=== PATIENT | male | born 1945 | race Caucasian/White ===

== ENCOUNTER 2016-07-22 12:20 | Outpatient (CLI) | payer BC, MEDICARE | END 2016-07-22 12:21 | disposition home or self-care (01) | LOC: NAVSJIPCSP 12:20 | PROVIDERS: ATTEND Family Medicine | DX: C44.601 Unspecified malignant neoplasm of skin of unspecified upper limb, including shoulder (principal) ==

== ENCOUNTER 2020-12-16 13:57 | Outpatient (CLI) | payer MEDICARE, OTHER | END 2020-12-16 13:58 | disposition home or self-care (01) | LOC: NAV RAD 13:57 | PROVIDERS: ATTEND Family Medicine | DX: R10.9 Unspecified abdominal pain (principal); R11.0 Nausea; K63.89 Other specified diseases of intestine | CPT/HCPCS: 74018 ==

== ENCOUNTER 2020-12-16 15:57 | Outpatient (CLI) | payer MEDICARE, OTHER ==
[~2020-12-16 15:57] MED LIST: Iopamidol 370 76% 100 ML VIAL ONE
== END 2020-12-16 15:58 | disposition home or self-care (01) ==
LOC: NAV CT 15:57
PROVIDERS: ATTEND Family Medicine
DX: R10.9 Unspecified abdominal pain (principal); I70.0 Atherosclerosis of aorta; M47.816 Spondylosis without myelopathy or radiculopathy, lumbar region; N20.0 Calculus of kidney; N28.9 Disorder of kidney and ureter, unspecified; N28.89 Other specified disorders of kidney and ureter; K59.00 Constipation, unspecified
CPT/HCPCS: 74018; 74177; 82150; 83690; 83880; Q9967

== ENCOUNTER 2020-12-16 16:14 | Outpatient (CLI) | payer MEDICARE, OTHER ==
[2020-12-16 16:22] LABS: #Eosinphils 0.2 thou/uL (0.0-0.7); #Lymphocytes 1.1 thou/uL (1.20-3.40); #Monocytes 0.9 thou/uL (0.11-0.59); #Neutrophils 3.9 thou/uL (1.40-6.50); %Basophils 0.7 % (0.0-1.0); %Eosinophils 2.9 % (0.0-10.0); %Lymphocytes 17.8 % (21.0-51.0); %Monocytes 14.6 % (0.0-10.0); %Neutrophils 64.1 % (42.0-75.0); ALT (SGPT) 24 U/L (8-55); AST (SGOT) 28 U/L (5-34); Albumin 3.5 g/dL (3.4-4.8); Alkaline Phosphatase 115 U/L (40-110); Anion Gap 16 mmol/L (10-20); BUN (Urea Nitrogen) 25 mg/dL (8.4-25.7); Bilirubin, Total 0.5 mg/dL (0.2-1.2); Calc. Creatinine Clearance 0 mL/min (70-130); Calcium 8.5 mg/dL (7.8-10.44); Carbon Dioxide 22 mmol/L (23-31); Chloride 104 mmol/L (98-107); Globulin 2.3 g/dL (2.4-3.5); Hemoglobin 14.8 g/dL (14.0-18.0); Lipase 14 U/L (8-78); Mean Corpuscular HGB CONC 30.8 g/dL (32.0-36.0); Mean Corpuscular Hemoglobin 29.7 pg (27.0-31.0); Mean Corpuscular Volume 96.3 fL (78.0-98.0); Mean Platelet Volume 9.6 fL (7.4-10.4); Platelet Count 182 thou/uL (130-400); Potassium 4.7 mmol/L (3.5-5.1); Protein, Total 5.8 g/dL (5.8-8.1); RBC Distribution Width 13.6 % (11.5-14.5); Red Blood Cell (RBC) Count 4.98 mill/uL (4.70-6.10); Sodium 137 mmol/L (136-145); White Blood Cell (WBC) Count 6.2 thou/uL (4.8-10.8)
[2020-12-16 16:24] LABS: Glucose 230 mg/dL (83-110)
== END 2020-12-16 16:15 | disposition home or self-care (01) ==
LOC: NAV LAB 16:14
PROVIDERS: ATTEND Family Medicine
DX: R11.0 Nausea (principal)
CPT/HCPCS: 82150; 83690; 83880

== ENCOUNTER 2022-10-25 09:11 | Emergency (ER) | payer OTHER, MEDICARE ==
[2022-10-25] MEDS ORDERED: Lidocaine 1% w/Epinephrine 1:100K 20 ML VIAL ONE (10:21)
== END 2022-10-25 11:30 | disposition home or self-care (01) ==
LOC: NAV ERS 09:11
DX: S81.812A Laceration without foreign body, left lower leg, initial encounter (principal); D68.9 Coagulation defect, unspecified; I48.91 Unspecified atrial fibrillation; I50.9 Heart failure, unspecified; E11.9 Type 2 diabetes mellitus without complications; W54.1XXA Struck by dog, initial encounter; Z97.4 Presence of external hearing-aid; Z95.5 Presence of coronary angioplasty implant and graft; Z95.810 Presence of automatic (implantable) cardiac defibrillator
CPT/HCPCS: 12001

== ENCOUNTER 2022-11-06 12:32 | Emergency (ER) | payer MEDICARE ==
[2022-11-06 14:06] LABS: #Basophils 0.1 thou/uL (0.0-0.2); #Eosinphils 0.1 thou/uL (0.0-0.7); #Lymphocytes 1.1 thou/uL (1.20-3.40); #Monocytes 1.1 thou/uL (0.11-0.59); #Neutrophils 7.4 thou/uL (1.40-6.50); %Basophils 0.5 % (0.0-1.0); %Eosinophils 1.2 % (0.0-10.0); %Lymphocytes 11.1 % (21.0-51.0); %Monocytes 11.5 % (0.0-10.0); %Neutrophils 75.6 % (42.0-75.0); Hemoglobin 14.3 g/dL (14.0-18.0); Mean Corpuscular HGB CONC 32.4 g/dL (32.0-36.0); Mean Corpuscular Volume 92.5 fl (78.0-98.0); Mean Platelet Volume 8.3 fL (7.4-10.4); Platelet Count 222 10x3/uL (130-400); RBC Distribution Width 14.2 % (11.5-14.5); Red Blood Cell (RBC) Count 4.76 mill/uL (4.70-6.10); White Blood Cell (WBC) Count 9.8 10x3/uL (4.8-10.8)
[2022-11-06] MEDS ORDERED: Vancomycin 1 GM VIAL ONE (14:08)
[2022-11-06] MEDS ORDERED: Sodium Chloride 0.9% 500 ML ONE (14:08)
[2022-11-06 14:19] LABS: ALT (SGPT) 16 U/L (8-55); AST (SGOT) 23 U/L (5-34); Albumin 3.4 g/dL (3.4-4.8); Alkaline Phosphatase 115 U/L (40-110); Anion Gap 16 mmol/L (10-20); BUN (Urea Nitrogen) 27 mg/dL (8.4-25.7); Bilirubin, Total 0.6 mg/dL (0.2-1.2); Calc. Creatinine Clearance 0 mL/min (70-130); Calcium 8.8 mg/dL (7.8-10.44); Carbon Dioxide 30 mmol/L (23-31); Chloride 94 mmol/L (98-107); Estimated GFR 41; Globulin 3.2 g/dL (2.4-3.5); Glucose 255 mg/dL (83-110); Potassium 3.6 mmol/L (3.5-5.1); Protein, Total 6.6 g/dL (5.8-8.1); Sodium 136 mmol/L (136-145)
== END 2022-11-06 16:35 | disposition short-term general hospital (02) ==
LOC: NAV ERS 12:32
DX: T81.49XA Infection following a procedure, other surgical site, initial encounter (principal); L02.213 Cutaneous abscess of chest wall; E11.9 Type 2 diabetes mellitus without complications; Z79.4 Long term (current) use of insulin; E78.5 Hyperlipidemia, unspecified; Z79.899 Other long term (current) drug therapy
CPT/HCPCS: 36415; 80053; 83605; 85025; 87040; 87070; 87077; 87186; 87205; 96365; 96366; J3370; J7030

== ENCOUNTER 2022-11-23 15:33 | Emergency (ER) | payer MEDICARE | END 2022-11-23 18:10 | disposition home or self-care (01) | LOC: NAV ERS 15:33 | DX: Z45.2 Encounter for adjustment and management of vascular access device (principal); E78.5 Hyperlipidemia, unspecified; E11.9 Type 2 diabetes mellitus without complications; I50.9 Heart failure, unspecified; Z79.4 Long term (current) use of insulin; Z79.02 Long term (current) use of antithrombotics/antiplatelets; Z79.01 Long term (current) use of anticoagulants | CPT/HCPCS: 36416; 99283 ==